=== PATIENT | female | born 1995 | race Caucasian/White ===

== ENCOUNTER 2019-03-06 00:20 | Emergency (ER) | payer BC ==
--- NOTE | 2019-03-06 02:59 | ED ---
Laceration/Wound HPI - HPI Summary HPI Summary: This pt is a 23 Y/O F presenting to [facility] with a CC of multiple lacerations following a dog bite that occurred around 0000 with pain that is currently rated a 7/10 in severity. She states that the dog is UTD on its vaccinations. She is unsure of her last tetanus shot. She states that she was bite in her face , with the worse laceration located around her L eye. She currently denies any fevers, chills, N/V, and visual issues. She states that she has no aggravating or alleviating factors. She has no pertinent PMHx. - History of Current Complaint Stated Complaint: DOG BITE PER PT Time Seen by Provider: 03/06/19 02:26 Hx Obtained From: Patient Mechanism of Injury: Other - dog bite Onset/Duration: Sudden Onset, Still Present Aggravating: Nothing Alleviating: Nothing Timing: Constant Onset Severity: Moderate Current Severity: Moderate Pain Intensity: 6 Pain Scale Used: 0-10 Numeric Associated Signs & Symptoms: Negative - gamaliel, chills, N/V, and visual issues, Pain - Allergy/Home Medications Allergies/Adverse Reactions: Allergies Allergy/AdvReac Type Severity Reaction Status Date / Time azithromycin [From Zithromax] Allergy Rash Verified 03/06/19 00:27 Home Medications: Home Medications NK [No Home Medications Reported] 03/06/19 [History Confirmed 03/06/19] PMH/Surg Hx/FS Hx/Imm Hx Previously Healthy: Yes Musculoskeletal History: Reports: Hx Joint Replacement - shoulder surgery Psychiatric History: Reports: Hx Anxiety, Hx Depression - Cancer History Hx Chemotherapy: No Hx Radiation Therapy: No - Surgical History Surgical History: Yes Surgery Procedure, Year, and Place: shoulder surgery Infectious Disease History: No Infectious Disease History: Denies: Traveled Outside the [place] in Last 30 Days - Family History Known Family History: Negative: Cardiac Disease, Hypertension, Diabetes - Social History Occupation: Student - [employer] Lives: Dormitory/Roommates Alcohol Use: Occasionally Hx Substance Use: No Substance Use Type: Reports: None Hx Tobacco Use: No Smoking Status (MU): Never Smoked Tobacco Household Exposure: No Review of Systems - ROS Summary Review of Systems Summary: Home Medications Medication Instructions Recorded Confirmed Type NK [No Home Medications Reported] 03/06/19 03/06/19 History Negative: Fever, Chills Negative: Vomiting, Nausea Skin: Other - multiple small lacerations to her face, one large laceration All Other Systems Reviewed And Are Negative: Yes Physical Exam - Summary Physical Exam Summary: General: Well-developed, Well-nourished female. No acute distress. HEENT: Normocephalic, Atraumatic. Eyes: Conjuctiva normal, PERRL. Ears: TMs within normal limits. Nares: (-) discharge, (-) erythema. Oropharynx: Clear, mucous membranes moist, (-) exudates. Neck: Soft, FROM, (-) lymphadenopathy, (-) thyromegaly, (-) JVD. Cardiovascular: Normal sinus rhythm, (-) murmur. Lungs: Clear to auscultation bilaterally (-) wheezes, (-) rales, (-) rhonchi. Abdomen: Soft, non-tender, non-distended, (-) organomegaly, normal bowel sounds. Back: (-) CVA tenderness Extremities: No edema. Skin: Warm, dry, (-) rash. Swelling in upper and lower eyelids on the left Superficial scratches and abrasions coming down her L face Horizontal laceration proximal to the L eye that is approximately 1.2 cms Neuro: Alert and oriented x3, no focal deficits. Psychiatric: Mood normal, affect normal. Triage Information Reviewed: Yes Vital Signs On Initial Exam: Initial Vitals Temp Pulse Resp BP Pulse Ox 100.3 F 130 22 137/117 98 03/06/19 00:20 03/06/19 00:20 03/06/19 00:20 03/06/19 00:20 03/06/19 00:20 Vital Signs Reviewed: Yes Procedures - Sedation Patient Received Moderate/Deep Sedation with Procedure: No - Laceration/Wound Repair 1 Location: face Description: Linear Length, Depth and Shape: Lateral to her L eye, 1.2 cms Irrigated w/ Saline (ccs): 150 Laceration/Wound Explored: clean Closure: Skin Adhesive, Single Layer - glu Layer Closure?: No Sterile Dressing Applied?: Yes Diagnostics - Vital Signs Vital Signs Temp Pulse Resp BP Pulse Ox 03/06/19 00:20 100.3 F 130 22 137/117 98 - Laboratory Lab Statement: Any lab studies that have been ordered have been reviewed, and results considered in the medical decision making process. Re-Evaluation - Re-Evaluation First Eval Re-Evaluation Time: 03:09 Change: Improved Comment: I have discussed results with the patient and her facial laceration is resolved. Discussed symptoms that warrant immediate return to ED Laceration Repair Course/Dx - Course Course Of Treatment: 23-year-old female with laceration left face. Dog bite. She states it was her roommate's dog. Up-to-date on all of its shots. She denies any injury except for those to the left face. Patient is unsure when her last tetanus shot was. Laceration closed with skin adhesive. Wound care outlined in written discharge instructions. Patient given tetanus shot. Follow -up with PCP. Follow-up sooner for any worsening symptoms. - Clinical Impression Provider Diagnoses: Facial laceration, Dog bite Discharge ED - Sign-Out/Discharge Documenting (check all that apply): Patient Departure - discharge - Discharge Plan Condition: Stable Disposition: HOME Patient Education Materials: Facial Laceration (ED) Referrals: [facility] @ [Outside] - 2 Days Additional Instructions: PLEASE RETURN TO THE EMERGENCY DEPARTMENT FOR ANY NEW OR WORSENING SYMPTOMS. FOLLOW UP WITH [facility] AT [facility] OR YOUR PRIMARY CARE PROVIDER IN 1-3 DAYS. - Billing Disposition and Condition Condition: STABLE Disposition: Home - Attestation Statements Document Initiated by Cierra: Yes Documenting Scribe: Yeyo Frye Provider For Whom Cierra is Documenting (Include Credential): Sheri Tyler MD Scribe Attestation: Yeyo Paz, scribed for Sheri Tyler MD on 03/06/19 at 0422. Scribe Documentation Reviewed: Yes Provider Attestation: The documentation as recorded by the Yeyo flores accurately reflects the service I personally performed and the decisions made by me, Sheri Tyler MD Status of Scribe Document: Viewed
[2019-03-06] MEDS: Tetan/Diph/Pertus SYR(Tdap)* 0.5 ML SYR(BOOSTRIX) use SYR contains LATEX IM ONE (03:10)
[2019-03-06] MEDS: Ibuprofen TAB* 400 MG PO ONE (03:10)
[2019-03-06 03:18] VITALS: BP 128/78
== END 2019-03-06 03:09 | disposition home or self-care (01) ==
LOC: ED 00:20
DX: S01.85XA Open bite of other part of head, initial encounter (principal); Z23 Encounter for immunization; W54.0XXA Bitten by dog, initial encounter; Y92.009 Unspecified place in unspecified non-institutional (private) residence as the place of occurrence of the external cause; Z88.1 Allergy status to other antibiotic agents
CPT/HCPCS: 90471; 90715; 99282; A9270-GY